=== PATIENT | male | born 1985 | race Caucasian/White ===

== ENCOUNTER 2019-08-25 13:54 | Emergency (ER) | payer MEDICAID, OTHER, SELFPAY ==
[~2019-08-25] VITALS: Ht 182.9 cm; Wt 72.4 kg
[2019-08-25 18:38] VITALS: BP 119/76
== END 2019-08-25 18:48 | disposition home or self-care (01) ==
LOC: M ED 13:54
DX: M54.2 Cervicalgia (principal); X50.3XXA Overexertion from repetitive movements, initial encounter; Y92.099 Unspecified place in other non-institutional residence as the place of occurrence of the external cause; Y93.9 Activity, unspecified; Y99.9 Unspecified external cause status; R01.1 Cardiac murmur, unspecified; F17.200 Nicotine dependence, unspecified, uncomplicated